=== PATIENT | female | born 1975 | race Caucasian/White ===

== ENCOUNTER → 2020-04-12 | Outpatient (CLI) | payer OTHER ==
[~2020-04-12] MED LIST: HYDACE5 PO; PROM25 PO
[2020-04-14 17:10] LABS: CORONAVIRUS (COVID19) CSH-NRL Negative (Negative)
== END | disposition home or self-care (01) ==
LOC: LAB SHORT 16:15 → LAB 16:15
PROVIDERS: Physician Assistant
DX: Z20.822 Contact with and (suspected) exposure to COVID-19 (principal)
CPT/HCPCS: U0003

== ENCOUNTER 2021-08-18 13:31 | Emergency (ER) | payer OTHER ==
[~2021-08-18] VITALS: Ht 165.1 cm; Wt 77.1 kg
== END 2021-08-18 15:30 | disposition home or self-care (01) ==
LOC: ER 13:31
DX: U07.1 COVID-19 (principal); I10 Essential (primary) hypertension; E11.9 Type 2 diabetes mellitus without complications
CPT/HCPCS: 99284

== ENCOUNTER 2024-05-25 11:37 | Day surgery (SDC) | payer OTHER ==
[~2024-05-25] VITALS: Ht 165.1 cm; Wt 91.0 kg
[~2024-05-25 11:37] MED LIST changes: +NS 500 ML IV ONE
[2024-05-25] MEDS ORDERED: CeFAZolin Sodium 2,000 MG VIAL ONE (11:49)
[2024-05-25] MEDS ORDERED: WEGOVY0.5 MG/0.5 SQ (12:11)
[2024-05-25] MEDS ORDERED: METOPROLOL SUCC25 MG PO (12:13)
[2024-05-25] MEDS ORDERED: ROSUVASTATIN CA20 MG PO (12:13)
[2024-05-25] MEDS ORDERED: LOSARTAN 100 MG (12:14)
[2024-05-25] MEDS ORDERED: FIASP 100100 UNIT/4 SQ (12:23)
[2024-05-25] MEDS ORDERED: BUMETANIDE0.5 M6 (12:24)
[2024-05-25] MEDS ORDERED: NS 500 ML IV ONE (12:45)
--- NOTE | 2024-05-25 12:49 | NUR ---
05/25/24 1249 Helen Lock 1235: TIMEOUT FOR INJECTION 1236: TOTAL OF [address] HARE OF MIX OF 9 CC LIDOCAINE 1% WITH EPI 1:100,000 WITH 1 CC SODIUM BICARB
[2024-05-25] MEDS ORDERED: propofoL 20 ML IV ONE (13:24)
[2024-05-25] MEDS ORDERED: Midazolam HCl 1MG / ML 2ML Vial ONE (13:24)
[2024-05-25] MEDS ORDERED: Dexamethasone Sod Phos 10 MG/ML 1ML VIAL ONE (13:26)
[2024-05-25] MEDS ORDERED: Ondansetron HCl 2 MG / ML 2ML Vial ONE (13:26)
--- NOTE | 2024-05-25 13:45 | NUR ---
05/25/24 1345 Kiara Jordan PT ARRIVES TO SDU A&OX4, DENIES PAIN/NAUSEA, VSS, ON RA. NO VISIBLE SIGNS OF DISTRESS NOTED.
[2024-05-25 13:46] VITALS: BP 109/76
== END 2024-05-25 14:14 | disposition home or self-care (01) ==
LOC: ORSCSDS 11:37
PROVIDERS: Orthopaedic Surgery
PROC: 0LN70ZZ Release Right Hand Tendon, Open Approach (ICD-10-PCS; principal; 2024-05-25 13:00)
DX: M65.331 Trigger finger, right middle finger (principal); I10 Essential (primary) hypertension; E78.5 Hyperlipidemia, unspecified; I49.3 Ventricular premature depolarization; E11.9 Type 2 diabetes mellitus without complications; E66.9 Obesity, unspecified; Z68.33 Body mass index [BMI] 33.0-33.9, adult; Z79.899 Other long term (current) drug therapy
CPT/HCPCS: 82947; J0690; J1100; J2250; J2405; J2704; J7040

== ENCOUNTER → 2025-03-08 | Outpatient (CLI) | payer OTHER ==
[~2025-03-08] MED LIST changes: +BUMETANIDE0.5 M6; +FIASP 100100 UNIT/4 SQ; +LOSARTAN 100 MG; +METOPROLOL SUCC25 MG PO; -NS 500 ML IV ONE; +ROSUVASTATIN CA20 MG PO; +WEGOVY0.5 MG/0.5 SQ
[2025-03-08 10:44] LABS: BASOPHILS ABSOLUTE AUTO 0.01 K/mm3 (0.00-0.23); BASOPHILS PERCENT AUTO 0 % (0-2); EOSINOPHILS ABSOLUTE AUTO 0.11 K/mm3 (0.00-0.68); EOSINOPHILS PERCENT AUTO 3 % (0-6); Hematocrit 42.2 % (33.0-51.0); Hemoglobin 14.3 g/dL (11.5-16.0); IMMATURE GRAN ABSOLUTE AUTO 0.01 K/mm3 (0.00-0.10); IMMATURE GRAN PERCENT AUTO 0 % (0-1); LYMPHOCYTES ABSOLUTE AUTO 1.39 K/mm3 (0.84-5.20); LYMPHOCYTES PERCENT AUTO 32 % (21-46); MONOCYTES ABSOLUTE AUTO 0.27 K/mm3 (0.16-1.47); MONOCYTES PERCENT AUTO 6 % (4-13); Mean Corpuscular HGB Conc 33.9 g/dL (31.5-36.5); Mean Corpuscular Volume 88 fL (80-100); NEUTROPHILS ABSOLUTE AUTO 2.57 K/mm3 (1.96-9.15); NEUTROPHILS PERCENT AUTO 59 % (41-73); NRBC ABSOLUTE 0.00 K/mm3 (0.00-0.02); NRBC Auto 0.0 /100 WBC (0.0-0.2); Platelet Count 225 K/mm3 (150-400); RDW Coefficient Variation 12.2 % (11.7-14.2); RDW Standard Deviation 39.5 fL (35.1-46.3)
[2025-03-08 11:59] LABS: Alanine Aminotransfer (ALT/SGP 26.0 U/L (12-78); Albumin, Blood 4.0 g/dL (3.4-5.0); Albumin/Globulin Ratio 1.1 (0.8-1.8); Anion Gap 15.0 mmol/L (3-11); Aspartate Aminotrans (AST/SGOT 22.0 U/L (12-37); Bilirubin, Total 2.5 mg/dL (0.1-1.0); Blood Urea Nitrogen 12.0 mg/dL (8-24); CO2, Blood 27.0 mmol/L (21-32); Calcium, Blood 9.0 mg/dL (8.5-10.1); Chloride, Blood 106.0 mmol/L (98-108); Creatinine, Blood 0.78 mg/dL (0.40-1.00); Globulin, Blood 3.8 g/dL (2.2-4.0); Glucose, Blood 107.0 mg/dL (70-99); Potassium, Blood 3.8 mmol/L (3.5-5.5); Sodium, Blood 144.0 mmol/L (136-145); Total Protein, Blood 7.8 g/dL (6.4-8.2)
== END ==
LOC: LAB SHORT 10:40 → LAB 10:40
PROVIDERS: Physician Assistant Medical
DX: R07.81 Pleurodynia (principal)
CPT/HCPCS: 80053; 83690; 85025; 85379